=== PATIENT | male | born 1995 | race Caucasian/White ===

== ENCOUNTER 2024-09-05 12:02 | Emergency (ER) | payer SELFPAY ==
[2024-09-05 12:08] VITALS: BP 96/82
[2024-09-05] MEDS: MOTRIN 600 MG PO (13:44)
[2024-09-05] MEDS: TYLENOL 650 MG PO (13:45)
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
[2024-09-05 14:15] VITALS: BP 109/84
== END 2024-09-05 14:20 | disposition home or self-care (01) ==
LOC: EMR 12:02
PROVIDERS: EMERGENCY PHYSICIAN Emergency Medicine; FAMILY PHYSICIAN Internal Medicine
DX: S62.001A Unspecified fracture of navicular [scaphoid] bone of right wrist, initial encounter for closed fracture (principal); V49.40XA Driver injured in collision with unspecified motor vehicles in traffic accident, initial encounter
CPT/HCPCS: 29125; 99283; 73110